=== PATIENT | female | born 1995 | race Caucasian/White ===

== ENCOUNTER 2017-11-05 19:33 | Emergency (ER) | payer BC, OTHER ==
[2017-11-05] MEDS ORDERED: HYDROcodone/Acetaminophen 5/325 mg Tablet ONE (21:35)
[2017-11-05] MEDS ORDERED: Lidocaine 1% (PF) 30 ML VIAL ONE (21:44)
--- NOTE | 2017-11-05 23:23 | PDOC.EVN ---
Event Note - Event Note Event Note: PRE-OP DIAGNOSIS: Perineal abscess POST-OP DIAGNOSIS: Same PROCEDURE: incision and drainage of abscess Performing Physician: Dr. Jean Carlos Montalvo Supervising Physician (if applicable): Dr. Ge Antony PROCEDURE: The area was carefully examined, no erythema or warmth to touch. 3cm x 3 cm area of induration. The area was prepared use 2 swabs of iodine. Anesthesia was achieved using 5cc of lidocaine without epi with a 27G needle. A 2 cm linear incision at area of maximal induration was made. 10cc of clear serosanguineous fluid was expressed. No sign of purulent material. The abcess was explored thoroughly and sequestered pockets were opened using hemostat. Bleeding was minimal EBL 5cc. The lesion was left open and packed with iodiform. The patient received immediate relief from the procedure. Followup: The patient tolerated the procedure well without complications. Standard post-procedure care is explained and return precautions are given. She is to follow-up at [facility] in 5-7 days. RTC if she develops redness, increased pain , or fevers. S: This is a 22 patient complaining of severe perineal pain exacerbated by sitting down. She has significant history of precocious puberty starting at age 10. She has been on Depo-shots since this time except for a short 6 month break starting in december 2016. 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 She denies Cafe au lait spots. O: afebrile 3cm x 3cm area of induration without erythema or induration on the left perineum. Tender to touch. Not warm. She has shaved her pubic hairs and admits to shaving the perineum as well. A&P #Perineal Abscess - serosanginous fluid expressed, no sign of purulence - packed with iodoform - no fever, erythema, warmth, will hold off abx or cultures at this time - follow up with [facility] in 5-7 days # Precocious Puberty - consider Tim- Solange Syndrome - discuss other options than depo for contraception 2/2 risk for osteopenia <Jean Carlos Montalvo - Last Filed: 11/05/17 23:08> - Event Note Event Note: Faculty Attestation: Agree with note and plan of care as described. Patient seen at bedside from 2240 to approx 2300 Procedure: perineal abscess I&D with packing <Ge Antony - Last Filed: 11/05/17 23:25>
--- NOTE | 2017-11-05 23:24 | PDOC.EVN ---
Event Note - Event Note Event Note: ED Consult OBGYN H&P CONSULT Bed D in ED Requesting Provider: ED Physician Assistenat Reason for evalk: Suspected left Bartholin's Abcess HPI: 22 yo on chronic DepoProvera since "age 10" due to "early periods". Also with left leg roberson surgery for fibrous dysplasia. Here for left side of vagina swelling. The ED physician assistent called me and Dr Montalvo at [facility] 2229 for eval. We examined the patient from 2239- 2299. No past HX DM, no past pregnancies, no prior abscesses. Past med: early menarche Surgery: left leg roberson bone BX= fibrous dysplasia Allergies: None Physical: normotensive, afebrile. Short stature noted On exam: bartholin are not involved. The abess appears to be perineal, left sided..about 3X3 cm. No fisulous tract, no cellulitis. Mild folliculitis noted on mons from shaving PROCEDURE: I&D of vulvar abcess: After informed consent verbally obtained for I&D, area prepped with betadine. Lidocaine applied locally (about 5ml injected). Area lanced with scalpel and a 1 -2cm incision drawn interiorly. About 5ml of serous fluid and very small amount of purulence noted. I&D done by Dr Montalvo with me directly assisting (spreading the labia outward for visualization). PA in room as well. Area packed with small strip of iodoform packing. Assessment: perineum small abscess...no evidence bartholin's involvement. 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 No real cafe au lait spots. Procedure and eval time: 20 minutes Recommenced follow up at [facility] in 1 week No need for antibiotics or admit as no cellulitis noted
== END 2017-11-05 23:15 | disposition home or self-care (01) ==
LOC: ERS 19:33
DX: N76.4 Abscess of vulva (principal); G43.909 Migraine, unspecified, not intractable, without status migrainosus; L73.9 Follicular disorder, unspecified; F32.9 Major depressive disorder, single episode, unspecified; F41.9 Anxiety disorder, unspecified; F17.210 Nicotine dependence, cigarettes, uncomplicated
CPT/HCPCS: 99282; J2001

== ENCOUNTER 2024-02-12 09:06 | Outpatient (CLI) | payer BC | END 2024-02-12 09:07 | disposition home or self-care (01) | LOC: SCSMRI 09:06 | PROVIDERS: ATTEND Internal Medicine Gastroenterology | DX: K86.2 Cyst of pancreas (principal); M54.50 Low back pain, unspecified; R68.81 Early satiety; R19.7 Diarrhea, unspecified; K62.5 Hemorrhage of anus and rectum; M85.00 Fibrous dysplasia (monostotic), unspecified site; K86.89 Other specified diseases of pancreas; V89.2XXA Person injured in unspecified motor-vehicle accident, traffic, initial encounter | CPT/HCPCS: 74183; 76376 ==

== ENCOUNTER 2024-12-14 08:12 | Emergency (ER) | payer BC ==
[2024-12-14] MEDS ORDERED: Ketorolac Tromethamine 30 MG (1 mL) VIAL ONE (09:06)
== END 2024-12-14 09:59 | disposition home or self-care (01) ==
LOC: ERS 08:12
DX: M54.2 Cervicalgia (principal); R51.9 Headache, unspecified; F17.290 Nicotine dependence, other tobacco product, uncomplicated; V89.2XXA Person injured in unspecified motor-vehicle accident, traffic, initial encounter
CPT/HCPCS: 70450; 72125; 96372; J1885